=== PATIENT | female | born 2005 | race Hispanic/Latino ===

== ENCOUNTER → 2024-11-07 | Outpatient (CLI) | payer OTHER ==
[2024-11-07 16:38] LABS: FREE T4 1.36 NG/DL (0.89-1.76); PROGESTERONE 0.78 NG/ML
[2024-11-07 16:39] LABS: ESTRADIOL 170.6 PG/ML; FOLLICLE STIMULATING HORMONE 6.9 mIU/ML; LUTEINIZING HORMONE 25.6 mIU/ML; THYROID STIMULATING HORMONE 3.159 uIU/ML (0.55-4.78)
[2024-11-07 16:42] LABS: FREE T3 3.9 PG/ML (2.3-4.2)
[2024-11-07 16:49] LABS: THYROXINE (T4) 10.4 UG/DL (4.5-10.9)
== END ==
LOC: M LAB 15:41
PROVIDERS: ATTEND Physician Assistant
DX: R94.6 Abnormal results of thyroid function studies (principal)